=== PATIENT | male | born 1995 | race Caucasian/White ===

== ENCOUNTER → 2017-04-21 | Outpatient (CLI) | payer BC ==
[2013-06-11 00:56] VITALS: BP 105/71
== END ==
LOC: LAB 16:31 → EDSTATUS 16:49 → LAB 16:50
DX: Z20.2 Contact with and (suspected) exposure to infections with a predominantly sexual mode of transmission (principal); R30.0 Dysuria; N34.1 Nonspecific urethritis

== ENCOUNTER → 2017-12-16 | Outpatient (CLI) | payer BC ==
[2013-06-11 00:56] VITALS: BP 105/71
[2017-12-16 18:15] LABS: URINE APPEARANCE CLEAR; URINE BILIRUBIN NEGATIVE (NEGATIVE); URINE BLOOD TRACE (NEGATIVE); URINE COLOR YELLOW; URINE GLUCOSE NEGATIVE (NEGATIVE); URINE KETONE 1+ (NEGATIVE); URINE NITRATE NEGATIVE (NEGATIVE); URINE PROTEIN(semi-quant) NEGATIVE (NEGATIVE); URINE UROBILINOGEN NORMAL (NORMAL)
[2017-12-16 18:16] LABS: URINE LEUKOCYTE ESTERASE NEGATIVE (NEGATIVE); URINE WBC 0-1 /hpf (0-3)
== END ==
LOC: LAB 17:59
PROVIDERS: Nurse Practitioner Family
DX: R31.29 Other microscopic hematuria (principal)

== ENCOUNTER → 2018-09-08 | Outpatient (CLI) | payer BC ==
[2013-06-11 00:56] VITALS: BP 105/71
[2018-09-08 09:34] LABS: EOS # 0.1 (0.04-0.40); EOS % 1.4 % (0.0-4.0); HEMATOCRIT 46.3 % (42.0-52.0); LYMPH# 1.8 (1.50-4.00); MEAN CELL VOLUME 83 fl (78-100); MEAN CORPUSCULAR HEMOGLOBIN 29 pg (27-31); MEAN CORPUSCULAR HGB CONC 35 g/dL (33-37); MONO # 0.8 (0.20-0.80); NEU # 4.5 (1.40-6.50); PLATELET COUNT 175 K/mm3 (130-400); RED BLOOD COUNT 5.56 M/mm3 (4.20-5.60); RED CELL DISTRIBUTION WIDTH 12.7 % (11.5-14.5); WHITE BLOOD COUNT 7.2 K/mm3 (4.8-10.8)
[2018-09-08 09:46] LABS: ALBUMIN 4.7 g/dL (3.5-5.0); CALCIUM 9.7 mg/dL (8.4-10.2); POTASSIUM 4.1 mmol/L (3.6-5.0); TOTAL BILIRUBIN 0.8 mg/dL (0.2-1.3); TOTAL PROTEIN 7.9 g/dL (6.3-8.2)
[2018-09-08 10:02] LABS: URINE APPEARANCE HAZY; URINE BILIRUBIN NEGATIVE (NEGATIVE); URINE COLOR YELLOW; URINE GLUCOSE NEGATIVE (NEGATIVE); URINE KETONE NEGATIVE (NEGATIVE); URINE PROTEIN(semi-quant) TRACE mg/dL (NEGATIVE); URINE UROBILINOGEN 1 mg/dL (NORMAL)
[2018-09-08 10:03] LABS: URINE BLOOD 50 ery/uL (NEGATIVE); URINE LEUKOCYTE ESTERASE NEGATIVE (NEGATIVE); URINE MUCUS PRESENT (NOT PRESENT); URINE NITRATE NEGATIVE (NEGATIVE)
== END ==
LOC: LAB 09:01
PROVIDERS: Physician Assistant
DX: R19.7 Diarrhea, unspecified (principal); R31.9 Hematuria, unspecified

== ENCOUNTER 2019-02-12 18:56 | Emergency (ER) | payer OTHER ==
[~2019-02-12] VITALS: Ht 177.8 cm; Wt 81.8 kg
[2019-02-12 19:36] LABS: EOS # 0.1 (0.04-0.40); EOS % 0.8 % (0.0-4.0); HEMATOCRIT 49.3 % (42.0-52.0); HEMOGLOBIN 16.5 g/dL (13.5-18.0); LYMPH# 1.8 (1.50-4.00); MEAN CELL VOLUME 84 fl (78-100); MEAN CORPUSCULAR HEMOGLOBIN 28 pg (27-31); MEAN CORPUSCULAR HGB CONC 34 g/dL (33-37); MEAN PLATELET VOLUME 11.5 fl (7.4-10.4); MONO # 1.2 (0.20-0.80); PLATELET COUNT 188 K/mm3 (130-400); RED BLOOD COUNT 5.88 M/mm3 (4.20-5.60); RED CELL DISTRIBUTION WIDTH 13.5 % (11.5-14.5); WHITE BLOOD COUNT 14.3 K/mm3 (4.8-10.8)
[2019-02-12 19:49] LABS: NEU # 11.1 (1.40-6.50)
[2019-02-12] MEDS ORDERED: CEPHALEXIN250 MG PO (20:00)
[2019-02-12 20:14] VITALS: BP 127/79
== END 2019-02-12 20:14 | disposition home or self-care (01) ==
LOC: ED 18:56
PROVIDERS: Family Medicine
DX: J02.9 Acute pharyngitis, unspecified (principal)

== ENCOUNTER 2019-04-22 11:52 | Emergency (ER) | payer OTHER ==
[~2019-04-22] VITALS: Ht 177.8 cm; Wt 80.9 kg
[~2019-04-22 11:52] MED LIST: CEPHALEXIN250 MG PO
[2019-04-22 12:06] VITALS: BP 117/81
[2019-04-22] MEDS ORDERED: CYCLOBENZAPRINE10 M1 PO (13:26)
== END 2019-04-22 13:29 | disposition home or self-care (01) ==
LOC: ED 11:52
DX: S39.012A Strain of muscle, fascia and tendon of lower back, initial encounter (principal); R11.2 Nausea with vomiting, unspecified
CPT/HCPCS: J1885

== ENCOUNTER 2019-04-30 17:59 | Emergency (ER) | payer OTHER ==
[~2019-04-30] VITALS: Ht 177.8 cm; Wt 80.9 kg
[~2019-04-30 17:59] MED LIST changes: +CYCLOBENZAPRINE10 M1 PO
[2019-04-30 19:29] LABS: EOS # 0.2 (0.04-0.40); EOS % 2.3 % (0.0-4.0); HEMATOCRIT 50.7 % (42.0-52.0); LYMPH# 2.2 (1.50-4.00); MEAN CELL VOLUME 85 fl (78-100); MEAN CORPUSCULAR HEMOGLOBIN 29 pg (27-31); MEAN CORPUSCULAR HGB CONC 34 g/dL (33-37); MONO # 0.9 (0.20-0.80); NEU # 6.3 (1.40-6.50); PLATELET COUNT 178 K/mm3 (130-400); RED BLOOD COUNT 5.97 M/mm3 (4.20-5.60); RED CELL DISTRIBUTION WIDTH 13.3 % (11.5-14.5); WHITE BLOOD COUNT 9.7 K/mm3 (4.8-10.8)
[2019-04-30 20:43] LABS: URINE APPEARANCE CLEAR; URINE BILIRUBIN NEGATIVE (NEGATIVE); URINE BLOOD TRACE (NEGATIVE); URINE COLOR YELLOW; URINE GLUCOSE NEGATIVE (NEGATIVE); URINE KETONE NEGATIVE (NEGATIVE); URINE NITRATE NEGATIVE (NEGATIVE); URINE PROTEIN(semi-quant) NEGATIVE (NEGATIVE); URINE UROBILINOGEN NORMAL (NORMAL)
[2019-04-30 20:44] LABS: URINE LEUKOCYTE ESTERASE NEGATIVE (NEGATIVE); URINE WBC 0-1 /hpf (0-3)
[2019-04-30 20:49] VITALS: BP 136/92
[2019-04-30] MEDS ORDERED: PREDNISONE20 M1 PO (20:52)
== END 2019-04-30 20:57 | disposition home or self-care (01) ==
LOC: ED 17:59
PROVIDERS: Family Medicine
DX: L50.9 Urticaria, unspecified (principal); F17.210 Nicotine dependence, cigarettes, uncomplicated; Z85.51 Personal history of malignant neoplasm of bladder
CPT/HCPCS: J7512

== ENCOUNTER 2019-07-14 11:51 | Emergency (ER) | payer OTHER ==
[~2019-07-14 11:51] MED LIST changes: +PREDNISONE20 M1 PO
[2019-07-14 13:16] VITALS: BP 96/58
== END 2019-07-14 12:41 | disposition home or self-care (01) ==
LOC: ED 11:51
DX: S60.032A Contusion of left middle finger without damage to nail, initial encounter (principal); Z88.0 Allergy status to penicillin; W27.8XXA Contact with other nonpowered hand tool, initial encounter; Y92.69 Other specified industrial and construction area as the place of occurrence of the external cause; Y99.0 Civilian activity done for income or pay